=== PATIENT | female | born 1980 | race Caucasian/White ===

== ENCOUNTER 2023-03-07 16:05 | Outpatient (CLI) | payer OTHER, SELFPAY ==
--- NOTE | 2023-03-07 16:15 | CRLHL7_ITS ---
For Patients: As a result of the Cures Act, medical imaging exams and procedure reports are released immediately into your electronic medical record. You may view this report before your referring provider. If you have questions, please contact your health care provider. BILATERAL SCREENING MAMMOGRAM WITH COMPUTER-AIDED DETECTION AND TOMOSYNTHESIS TECHNIQUE: CC and MLO views were obtained. These mammographic images have been obtained using full-field digital technique. These mammographic images were interpreted with the benefit of computer-aided detection. Breast Tomosynthesis was used in this interpretation. COMPARISON FILM: 01/31/22, 12/04/20. FINDINGS: The breasts are heterogeneously dense, which may obscure small masses IMPRESSION: There is no radiographic evidence for malignancy. ASSESSMENT: BI-RADS Category 1: Negative RECOMMENDATION: Routine screening mammogram in 1 year. A lay language report of this examination will be provided to the patient. Tyler Kincaid M.D. Diagnostic Radiologist [email or web address] EVELYN/jose m Transcribed: 1:21 p.thad salguero/Dictated by: Tyler Kincaid MD @ 03/08/2023 10:51:00 AM (Electronically Signed)
== END 2023-03-07 16:06 | disposition home or self-care (01) ==
LOC: MAMMO 16:06
PROVIDERS: PCP Family Medicine; Visit Provider Physician Assistant
DX: Z12.31 Encounter for screening mammogram for malignant neoplasm of breast (principal); R92.2 Inconclusive mammogram
CPT/HCPCS: 77063; 77067

== ENCOUNTER 2023-06-23 09:00 | Outpatient (CLI) | payer OTHER, SELFPAY | END 2023-06-23 09:01 | disposition home or self-care (01) | PROVIDERS: PCP Family Medicine; Visit Provider Physician Assistant | DX: Z01.419 Encounter for gynecological examination (general) (routine) without abnormal findings (principal); I10 Essential (primary) hypertension; R03.0 Elevated blood-pressure reading, without diagnosis of hypertension; R73.01 Impaired fasting glucose; E66.9 Obesity, unspecified | CPT/HCPCS: 80048; 80061 ==

== ENCOUNTER 2023-11-09 16:00 | Outpatient (CLI) | payer OTHER, SELFPAY ==
--- OUTSIDE RECORDS SUMMARY | 2023-11-15 20:09 | XMS_ITS | Clinical Summary ---
Author Name Unknown Organization [facility] & [facility] Address [place], [place] [address] Care Team Providers Care Wire Rope Sales Representative Name Role Phone Pcp, No Primary Care Provider Unavailabl e Allergies No known active allergies Medications Medication Sig Dispensed Refills Start Date End Date Status VITAMIN TAB take 1 tablet by oral route once daily 0 09/11/2009 Active norgestimate-ethinyl estradiol (TRINESSA) 0.18/0.215/0.25 mg-35 mcg (28) tablet Take 1 tablet by mouth once daily. 3 Package 3 10/25/2010 Active ondansetron (ZOFRAN) 4 mg tabletIndications:Viktor sea Take 1-2 tablets by mouth every 8 hours if needed for Nausea/Vomiting. 16 tablet 1 10/03/2011 Active Immunizations Name Administration Dates Next Due Hepatitis A (Adult) 03/20/2007 Hepatitis B (Adult) 06/08/2000 Hepatitis B (Peds) 05/26/1999,12/23/1996, 997 MMR 03/13/1993 Td (Age >=7 Years) 03/13/1993 Family History Medical History Relation Name Comments Heart Disease Maternal Grandfather Other Mother sleep apnea Diabetes Paternal Grandfather Stroke Paternal Grandmother Relation Name Status Comments Maternal Grandfather Mother Paternal Grandfather Paternal Grandmother Social History Tobacco Use Types Packs/Day Years Used Date Smoking Tobacco: Never Smokeless Tobacco: Never Tobacco Cessation:Counseling Given: No Alcohol Use Standard Drinks/Week Comments Yes 0 (1 standard drink = 0.6 oz pur e alcohol) occas Sex and Gender Information Value Date Recorded Sex Assigned at Not on file Gender Identity Not on file Sexual Orientation Not on file Obstetrics History Para Term AB IAB SAB Ectopic Multiple Livin g Live Births 2 2 2 Date Outcome GA Total Labor Labor/2nd/3rd Weight Sex Delivery Anes PTL Liz A1 A5 Name Cl in Para Para Last Filed Vital Signs Vital Sign Reading Time Taken Comments Blood Pressure 142/81 10/03/2011 6:56 PM EMS COORDINATOR tow er Pulse 91 10/03/2011 6:56 PM EMS COORDINATOR Temperature 37 ??C (98.6 ??F) 10/03/2011 6:51 PM EMS COORDINATOR Respiratory Rate - - Oxygen Saturation 99% 10/03/2011 6:51 PM EMS COORDINATOR Inhaled Oxygen Concentration - - Weight 66.6 kg (146 lb 12.8 oz) 10/03/2011 6:51 PM EMS COORDINATOR Height 154.9 cm (5' 1) 10/25/2010 1:46 PM EMS COORDINATOR Body Mass Index 27.74 10/25/2010 1:46 PM EMS COORDINATOR Plan of Treatment Health Maintenance Due Date Last Done Comments COVID-19 vaccine series (#1) 01/29/1981 Tdap 1991 Depression screening for age 12+ 1992 HIV for age 15-65 1995 BMI (ht and wt on same day) for age 18+ 1998 Hepatitis C screening for age 18-79 1998 Tetanus booster 03/13/2003 03/13/1993 Influenza for age 9-49 07/07/2023 Pap test for age 21-65 12/03/2024 2, 12/03/2021, 03/23/2017, Additional history exists Pneumococcal series for age 6-64 Aged Out No longer eligible based on patient's age to complete this topic Care Teams Wire Rope Sales Representative Relationship Specialty Start Date End Date Pcp, No . PCP - General 05/18/23
== END 2023-11-09 16:01 | disposition home or self-care (01) ==
LOC: NFLDREF 11-15 20:07
PROVIDERS: PCP Family Medicine; Referring Provider Family Medicine; Visit Provider Family Medicine
DX: I10 Essential (primary) hypertension (principal); R73.01 Impaired fasting glucose; E78.5 Hyperlipidemia, unspecified; E66.9 Obesity, unspecified; R63.4 Abnormal weight loss
CPT/HCPCS: 80048; 84443

== ENCOUNTER 2024-08-12 13:53 | Outpatient (CLI) | payer OTHER, SELFPAY ==
--- OUTSIDE RECORDS SUMMARY | 2024-08-12 13:56 | XMS_ITS | Clinical Summary ---
Author Organization [employer] [facility] Address [place], [place] [address] Care Team Providers Care Child Development Professor Name Role Phone Pcp, No Primary Care [...] hours if needed for Nausea/Vomiting. 16 tablet 01 10/03/2011 Active Immunizations Name Administration Dates Next [...] Outcome GA Total Labor Labor/2nd/3rd Weight Sex Type Anes PTL Liz A1 A5 Name Clin Para Para Last Filed Vital Signs Vital Sign Reading Time Taken Comments Blood Pressure 142/81 10/03/2011 6:56 PM ELECTRICAL SYSTEMS DRAFTER tow er Pulse 91 10/03/2011 6:56 PM ELECTRICAL SYSTEMS DRAFTER Temperature 37 ??C (98.6 ??F) 10/03/2011 6:51 PM ELECTRICAL SYSTEMS DRAFTER Respiratory Rate - - Oxygen Saturation 99% 10/03/2011 6:51 PM ELECTRICAL SYSTEMS DRAFTER Inhaled Oxygen Concentration - - Weight 66.6 kg (146 lb 12.8 oz) 10/03/2011 6:51 PM ELECTRICAL SYSTEMS DRAFTER Height 154.9 cm (5' 1) 10/25/2010 1:46 PM ELECTRICAL SYSTEMS DRAFTER Body Mass Index 27.74 10/25/2010 1:46 PM ELECTRICAL SYSTEMS DRAFTER Plan of Treatment Health Maintenance Due Date Last Done Comments Tdap 1991 Depression screening for age 12+ 1992 HIV for age 15-65 1995 BMI (ht and wt on same day) for age 18+ 1998 Hepatitis C screening for age 18-79 1998 Tetanus booster 03/13/2003 03/13/1993 COVID-19 vaccine series (2023- season) 2024 Influenza for age 9-49 07/07/2024 Pap test for age 21-65 12/03/2024 , 12/03/2021, 03/23/2017, Additional history exists Pneumococcal series for age 6-64 Aged Out No longer eligible based on patient's age to complete this topic Procedures Procedure Name Priority Date/Time Associated Diagnosis Comments HPV HIGH RISK Routine 12/03/2021 10:00 AM ELECTRICAL SYSTEMS DRAFTER from Last 3 Months or Most Recently Relevant to Health Maintenance Results * HPV HIGH RISK (12/03/2021 10:00 AM ELECTRICAL SYSTEMS DRAFTER) TYPE 16 Negative Negative 12/07/2021 11:52 AM ELECTRICAL SYSTEMS DRAFTER [facility] TYPE 18 Negative Negative 12/07/2021 11:52 AM ELECTRICAL SYSTEMS DRAFTER [facility] OTHER HIGH RISK TYPES Negative Negative 12/07/2021 11:52 AM ELECTRICAL SYSTEMS DRAFTER [facility] Other (Cervical/Vagina l) 12/03/2021 10:00 AM ELECTRICAL SYSTEMS DRAFTER 12/06/2021 7:57 AM ELECTRICAL SYSTEMS DRAFTER Narrative [facility] - 12/07/2021 11:52 AM ELECTRICAL SYSTEMS DRAFTER HPV types 16, 18, 31, 33, 35, 39, 45, 51, 52, 56, 58, 59, 66 and 68 DNA were undetectable or below the pre-set threshold. Methodology: Jeanine Gume 4800 HPV Test February Neville VASQUEZ [employer] [facility] [address] [place] [address], [place] from Last 3 Months or Most Recently Relevant to Health Maintenance Care Teams Child Development Professor Relationship Specialty Start Date End Date Pcp, No . PCP - General 05/18/23
--- NOTE | 2024-08-12 14:00 | CRLHL7_ITS ---
For Patients: As a result of the Century Cures Act, medical imaging exams and procedure reports are released immediately into your electronic medical record. You may view this report before your referring provider. If you have questions, please contact your health care provider. BILATERAL SCREENING MAMMOGRAM WITH COMPUTER-AIDED DETECTION AND TOMOSYNTHESIS TECHNIQUE: CC and MLO views were obtained. These mammographic images have been obtained using full-field digital technique. These mammographic images were interpreted with the benefit of computer-aided detection. Breast Tomosynthesis was used in this interpretation. COMPARISON FILM: 03/07/23, 01/31/22, 12/04/20. FINDINGS: The breasts are heterogeneously dense, which may obscure small masses IMPRESSION: There is no radiographic evidence for malignancy. ASSESSMENT: BI-RADS Category 1: Negative RECOMMENDATION: Routine screening mammogram in 1 year. A lay language report of this examination will be provided to the patient. Tyler Kincaid M.D. Diagnostic Radiologist [email or web address] EVELYN/jose m Transcribed: 1:38 p.thad salguero/Dictated by: Tyler Kincaid MD @ 08/13/2024 9:59:00 AM (Electronically Signed)
== END 2024-08-12 13:54 | disposition home or self-care (01) ==
LOC: MAMMO 13:54
PROVIDERS: PCP Family Medicine; Visit Provider Physician Assistant
DX: Z12.31 Encounter for screening mammogram for malignant neoplasm of breast (principal); R92.333 Mammographic heterogeneous density, bilateral breasts
CPT/HCPCS: 77063; 77067

== ENCOUNTER 2025-10-20 07:34 | Outpatient (CLI) | payer OTHER, SELFPAY ==
--- NOTE | 2025-10-20 07:45 | CRLHL7_ITS ---
For Patients: As a result of the Century Cures Act, medical imaging exams and procedure reports are released immediately into your electronic medical record. You may view this report before your referring provider. If you have questions, please contact your health care provider. INDICATION: BILATERAL SCREENING MAMMOGRAM, ASYMPTOMATIC 45 Y/O FEMALE COMPARISON: 08/12/2024, 03/07/2023, 01/31/2022 TECHNIQUE: Digital mammogram in CC and MLO projections including computer-aided detection (CAD) and tomosynthesis. BREAST COMPOSITION: There are scattered areas of fibroglandular density. FINDINGS: No suspicious findings. ASSESSMENT: BI-RADS 1 Negative RECOMMENDATION: Annual screening mammogram. A lay language report of this examination will be provided to the patient. Dictated by: Tyler Kincaid MD @ 10/20/2025 09:20:05 (Electronically Signed)
== END 2025-10-20 07:35 | disposition home or self-care (01) ==
LOC: MAMMO 07:34
PROVIDERS: PCP Family Medicine; Visit Provider Family Medicine
DX: Z12.31 Encounter for screening mammogram for malignant neoplasm of breast (principal)
CPT/HCPCS: 77063; 77067